=== PATIENT | male | born 1955 | race Caucasian/White ===

== ENCOUNTER 2021-11-22 18:11 | Emergency (ER) | payer OTHER, SELFPAY ==
[2021-11-22] MEDS ORDERED: Boostrix 0.5 ML (Tdap) VIAL (>/=7 yrs of age) ONE (18:26)
[2021-11-22] MEDS ORDERED: AMOXicillin 250 MG CAP ONE (18:26)
[2021-11-22] MEDS ORDERED: Bacitracin 1 PK ONE (18:26)
== END 2021-11-22 18:45 | disposition home or self-care (01) ==
LOC: BURERS 18:11
DX: S61.256A Open bite of right little finger without damage to nail, initial encounter (principal); I10 Essential (primary) hypertension; F17.210 Nicotine dependence, cigarettes, uncomplicated; Z23 Encounter for immunization; W54.0XXA Bitten by dog, initial encounter
CPT/HCPCS: 90471; 90715; 99283